=== PATIENT | male | born 1995 | race Caucasian/White ===

== ENCOUNTER 2019-04-23 08:42 | Emergency (ER) | payer BC ==
[~2019-04-23] VITALS: Ht 175.3 cm; Wt 104.8 kg
[2019-04-23 08:47] VITALS: Ht 175.3 cm; Wt 104.8 kg
[2019-04-23 09:15] VITALS: BP 130/88
== END 2019-04-23 09:15 | disposition home or self-care (01) ==
LOC: ED 08:42
DX: R11.0 Nausea (principal); R19.7 Diarrhea, unspecified
CPT/HCPCS: Q0162